=== PATIENT | female | born 1980 | race Native Hawaiian/Other Pacific Islander ===

== ENCOUNTER 2024-12-17 17:57 | Emergency (ER) | payer OTHER, SELFPAY ==
--- NOTE | ~2024-12-17 | CT_ITS ---
CLINICAL HISTORY: paranoia, altered CT head without contrast Comparison: None provided Findings: No intra-axial mass, midline shift, hydrocephalus, or acute hemorrhage. No significant atrophy-like change or white matter disease. The visualized paranasal sinuses and mastoid air cells are normal. The orbits are unremarkable. There is no acute fracture. IMPRESSION: 1. No acute intracranial findings. This document has been electronically signed by: Lindsay Garner MD on 12/17/2024 19:27:28
--- NOTE | 2024-12-17 18:02 | ED_ITS ---
HPI - General Adult General Chief complaint: General Medical Stated complaint: not feeling herself/paranoid/pcp sent her for eval Time Seen by Provider: 12/17/24 20:26 Source: patient, RN notes reviewed and old records reviewed Mode of arrival: ambulatory Limitations: no limitations History of Present Illness ED Provider: Louisa Morrow PA-C HPI narrative: Patient is accompanied by her significant other. Patient was referred to the emergency department to receive medical clearance before her psychiatrist Bee Said initiates medication. For the past month patient states she has had demand auditory hallucinations stating bad comments toward herself and sometimes other people. She denies having any SI HI. She feels paranoid sometimes like the world is out to get her. She denies having any new recent stressors. She does not have any visual hallucinations. She does not have plans to stay in the hospital or to have a crisis/ psychiatric evaluation here. She came here only for medical clearance and to be started on medication outpatient. She has not constitutional sxs: denies headaches, dizziness, sore throat, coughing, sob, abd pain, n/v/d. No body aches, joint pain or rashes. No sxs. No travel. Spouse who is with her has no add'l hx and patient feels safe and supported by him. Patient denies EtOH and illicit drug use. No known family hx of mental health disorders. Patient is reporting that she has not suffered from this before and denies any new life stressors. Onset (ago): month(s) (one) Related Data Allergies Allergy/AdvReac Type Severity Reaction Status Date / Time No Known Allergies Allergy Verified 12/17/24 18:09 Review of Systems 2 Review of Systems: Yes all other systems are reviewed and are negative [facility] Past Medical History Attestation statement: The following information was validated with the patient. Source: old records reviewed and nursing notes reviewed Social History Social History Alcohol intake: current Alcohol intake frequency: a few times a month Alcohol type: beer, wine and hard liquor Smoked in Last 30 Days: No Use of substances other than those prescribed or required for medical reasons: No Advance Directives: No Advance Directives Information Provided: No Do you have a plan to hurt others: No Plan Patient : No Physical Exam ED Vital Signs: Vital Signs - 24 hr 12/17/24 18:03 Temperature 98.3 F Pulse Rate 55 Respiratory Rate 18 Blood Pressure 147/86 H Pulse Oximetry 98 Oxygen Delivery Method Room Air BMI result Body Mass Index 36.6 Const Other: General: Appears in no acute distress, appears well-nourished body habitus is obese, appears stated age. No septic or ill-appearing. Vitals were reviewed normal, and PMH/Social and Surgical hx was reviewed, including allergies and current medications. - reviewed for prior visits here Head: Normocephalic, no abnormal lesions noted. Eyes: EOMI. ENMT: moist oral mucosa, no edematous nasal turbinates, erythema, or purulent d/c noted. No erythema, normal appearance, and intact tympanic membrane. Hearing intact. No mastoid tenderness b/l. Normal posterior pharynx and structures. Uvula is midline no trismus. Neck: trachea midline, no lymphadenopathy. No nuchal rigidity. Cardiovascular: Peripheral perfusion is normal; S1 and S2 are present, and no M/R/G is present. RRR Respiratory: no respiratory distress, lungs clear to auscultation b/l, respirations full and symmetric. No flail chest, chest wall tenderness, or crepitus was noted. Speaking in full smooth sentences. Abdomen: non-distended, nontender, protuberant Extremities: Warm and appear well perfused. Moving extremities without difficulty. Psych: Cooperative, calm. Neuro: Alert and orientated. No obvious focal deficits. Course Course Course Narrative: Rapid medical examination performed in triage by Cande Infante PA-C. Patient is a 44 year old assigned female at presenting to the emergency department with paranoia. Patient states that her psychiatrist recommended she come here for some testing. Patient states that she does not have any psychiatric history but they recommended she come here. Detailed physical exam and review of systems are deferred to the estate attorney. EKG, labs, imaging ordered. Patient placed back in the waiting room pending room availability and results. Medical Decision Making Medical Decision Making MDM Narrative: 44 year old female presenting to the emergency department for medical clearance for psychiatric management outpatient. Patient has no acute medical complaints. On arrival, patient is afebrile. Vitals are stable. Physical examination is as above and essentially unremarkable. Laboratory work-up is reassuring. At this time, the patient is medically cleared. She has declined ED psych consult. She feels safe to go home. Advised to return for any changes in mental status or crisis. She agreed with plan and was d/c to home stable with spouse. Differential Diagnosis Differential Diagnoses: The differential diagnosis associated with the presentation includes Mood disorder/schizoaffective disorder personality disorder Metabolic dysfunction, electrolyte imbalance, brain mass Admission/Observation Consideration of admission/observation: Escalation of care including admission/observation considered Lab Data MDM Lab Attestation statement: I reviewed the patient's lab results. 12/17/24 18:25 12/17/24 18:25 Labs: Lab Results 12/17/24 12/17/24 Range/Units 18:25 18:31 WBC 6.7 (4.8-10.8) X10*3/uL RBC 4.46 (4.20-5.50) X10*6/uL Hgb 13.8 (12.0-16.0) g/dl Hct 41.1 (37.0-47.0) % MCV 92.2 (80.0-98.0) fL MCH 30.9 (27.0-33.0) pg MCHC 33.6 (31.0-35.0) g/dl RDW 12.9 (11.0-16.0) % Plt Count 261 (160-400) X10*3/uL MPV 8.9 L (9.4-12.3) fL Immature Gran % (Auto) 0.0 (0.0-0.4) % Neut % (Auto) 62.3 (45-73) % Lymph % (Auto) 29.3 (20-40) % [place] % (Auto) 7.4 (2-11) % Eos % (Auto) 0.4 (0-4) % Baso % (Auto) 0.6 (0-2) % Lymph # (Auto) 2.0 (1.2-4.9) X10*3/uL [place] # (Auto) 0.5 (0.1-1.2) X10*3/uL Eos # (Auto) 0.0 (0.0-0.4) X10*3/uL Baso # (Auto) 0.0 (0.0-0.2) X10*3/uL Abs Immat Gran (auto) 0.00 (0.00-0.03) X10*3/uL Absolute Neuts (auto) 4.2 (2.0-8.3) x10*3/uL Absolute Nucleated RBC 0.000 (0.0-0.012) X10*3/uL Nucleated RBC % (auto) 0.0 (0.0-0.2) /100WBC Sodium 140 (135-145) mmol/L Potassium 4.4 (3.3-5.1) mmol/L Chloride 103 (96-108) mmol/L Carbon Dioxide 29 (22-29) mmol/L Anion Gap 12 (12-20) BUN 9 (9-16) mg/dL Creatinine 0.91 (0.5-1.4) mg/dL Estim Creat Clear Calc 106.5 Estimated GFR > 60 Random Glucose 100 (60-115) mg/dL Calcium 9.2 (8.4-10.2) mg/dL Total Bilirubin 0.5 (0.0-1.0) mg/dL AST 24 (5-31) U/L ALT 17 (0-31) U/L Alkaline Phosphatase 39 (39-117) U/L Total Protein 7.4 (6.5-8.0) g/dL Albumin 4.6 (3.5-5.0) g/dL Urine Color Yellow Urine Appearance Clear Urine pH 7.5 (5.0-9.0) Ur Specific [place] 1.015 (1.005-1.025) Urine Protein Negative (Neg-Trace) mg/dL Urine Glucose (UA) Negative (Negative) mg/dL Urine Ketones Negative (Negative) mg/dL Urine Blood Negative (Negative) Urine Nitrite Negative (Negative) Ur Leukocyte Esterase Negative (Negative) Salicylates < 5.0 L (15-30) mg/dL Urine Opiates Screen Not Detected (Not Detect) Ur Buprenorphine Scrn Not Detected (Not Detect) ng/mL Ur Oxycodone Screen Not Detected (Not Detect) ng/mL Urine Methadone Screen Not Detected (Not Detect) ng/mL Urine Fentanyl Screen Not Detected (Not Detect) Acetaminophen < 3 (<30) mcg/mL Ur Barbiturates Screen Not Detected (Not Detect) Ur Phencyclidine Scrn Not Detected (Not Detect) Ur Amphetamines Screen Not Detected (Not Detect) U Benzodiazepines Scrn Not Detected (Not Detect) Urine Cocaine Screen Not Detected (Not Detect) U Marijuana (THC) Screen Not Detected (Not Detect) Ethyl Alcohol < 10 mg/dL COVID-19 (ARIANA) Negative (Negative) COVID-19 Clin Com See Note Independent Interpretation I performed an independent interpretation of an: EKG and CT Scan Interpretation: No prolonged QTc. No intracranial findings. Radiology Impression Discussion of test interpretation with radiology: I have reviewed the radiologist's reading. Radiologist Impression: No mass affect. No ICH. Independent Historian Clinical information obtained from an independent historian. History obtained from or confirmed by: Spouse Social Determinants Patient?s care significantly limited by Social Determinants of Health including: Other Social Determinant of Health Discharge Plan Discharge Clinical Impression: Acute paranoia, Auditory hallucinations Patient Disposition: Home, Self-Care Instructions: Hallucinations (ED) Additional Instructions: Into the emergency department today to have medical clearance in regards to receiving potential medication for her mental health disorder that has yet to be fully diagnosed. There is no organic causes for her symptoms labs are normal negative head CT , no illicit drugs she has not endorsing any suicidal or homicidal ideations and declines psych consultation in the ED setting. You are established with a psychiatrist see handout for all your labs EKG: Test Reason : medical clearance Blood Pressure : */* mmHG Vent. Rate : 54 BPM Atrial Rate : 54 BPM P-R Int : 170 ms QRS Dur : 74 ms QT Int : 408 ms P-R-T Axes : -4 15 11 degrees QTcB Int : 386 ms Sinus bradycardia Otherwise normal ECG Head CT: IMPRESSION: 1. No acute intracranial findings Should you have any thoughts of harming herself or others please return immediately to emergency department or call the crisis line Referrals: Bee Akers NP [Nurse Practitioner, Physiatry] Referral Note: Patient has no organic cause of symptoms. She has been medically cleared. Interventions: ED Discharge Assessment Last Done: 12/17/24 20:51 Discharge Date/Time: 12/17/24 20:53 Print Language: Thai
[2024-12-17 18:03] VITALS: BP 147/86; PULSE 55; RESP 18; TEMP 36.8; O2SAT 98; BMI 36.6
[2024-12-17 18:34] LABS: MANUAL DIFF FLAG NO
[2024-12-17 18:37] LABS: Appearance Urine Clear; Glucose Urine UA Negative (Negative); PH 7.5 (5.0-9.0); Specific Gravity - Urine 1.015 (1.005-1.025)
[2024-12-17 18:37] LABS: Hematocrit 41.1 % (37.0-47.0); Hemoglobin 13.8 g/dl (12.0-16.0); Imm Gran Abs Auto 0.00 X10*3/uL (0.00-0.03); Imm Gran Pct Auto 0.0 % (0.0-0.4); Lymphocytes Absolute Auto 2.0 X10*3/uL (1.2-4.9); Mean Corpuscular HGB Conc 33.6 g/dl (31.0-35.0); Mean Corpuscular Hemoglobin 30.9 pg (27.0-33.0); Mean Corpuscular Volume 92.2 fL (80.0-98.0); NRBC Abs Auto 0.000 X10*3/uL (0.0-0.012); NRBC Pct Auto 0.0 /100WBC (0.0-0.2); Platelet Count 261 X10*3/uL (160-400); Red Blood Count 4.46 X10*6/uL (4.20-5.50); White Blood Count 6.7 X10*3/uL (4.8-10.8)
[2024-12-17 18:49] LABS: COVID-19 Test Negative (Negative); IDNOW Serial# 58CA691E
[2024-12-17 18:49] LABS: Cannabinoid Screen Urine Not Detected (Not Detect)
[2024-12-17 18:54] LABS: Alanine Aminotransferase 17 U/L (0-31); Albumin Level 4.6 g/dL (3.5-5.0); Alkaline Phosphatase 39 U/L (39-117); Anion Gap 12 (12-20); Aspartate Amino Transferase 24 U/L (5-31); Blood Urea Nitrogen 9 mg/dL (9-16); Calcium 9.2 mg/dL (8.4-10.2); Carbon Dioxide 29 mmol/L (22-29); Chloride 103 mmol/L (96-108); Creatinine Clr Calc Pharmacy 106.5; Estimated Glomerular Filt Rate > 60; Potassium 4.4 mmol/L (3.3-5.1); Sodium 140 mmol/L (135-145); Total Protein 7.4 g/dL (6.5-8.0)
[2024-12-17 18:55] LABS: Acetaminophen LAB < 3 mcg/mL (<30); Salicylate < 5.0 mg/dL (15-30)
[2024-12-17 20:43] VITALS: BP 117/60; PULSE 55; TEMP 36.7; O2SAT 97
[2024-12-17 20:51] VITALS: BP 117/60; PULSE 55; RESP 18; TEMP 36.7; O2SAT 97
== END 2024-12-17 20:53 | disposition home or self-care (01) ==
PROVIDERS: Physician Assistant Medical; Emergency Provider Emergency Medicine; PCP Nurse Practitioner Family
DX: F23 Brief psychotic disorder (principal); R44.0 Auditory hallucinations; E66.9 Obesity, unspecified; Z68.36 Body mass index [BMI] 36.0-36.9, adult; R00.1 Bradycardia, unspecified
CPT/HCPCS: 36415; 70450; 80053; 80143; 80179; 80307; 81003; 85025; 87635; 93005; 99284

== ENCOUNTER → 2024-12-17 18:04 | Outpatient (BNV) | payer OTHER, SELFPAY | PROVIDERS: Emergency Provider Emergency Medicine; PCP Nurse Practitioner Family; Visit Provider Internal Medicine Cardiovascular Disease | DX: R00.1 Bradycardia, unspecified (principal) | CPT/HCPCS: 93010 ==

== ENCOUNTER → 2024-12-17 18:04 | Outpatient (BNV) | payer OTHER, SELFPAY | PROVIDERS: PCP Nurse Practitioner Family; Visit Provider Student in an Organized Health Care Education/Training Program | DX: R41.82 Altered mental status, unspecified (principal) | CPT/HCPCS: 70450 ==

== ENCOUNTER 2025-02-10 12:15 | Outpatient (RCR) | payer OTHER, SELFPAY ==
[2025-02-05 09:33] VITALS: BMI 36.7
[2025-02-05 09:34] VITALS: BP 104/62; PULSE 76; TEMP 36
--- NOTE | 2025-02-05 10:13 | PC.ADMIT ---
Patient is a 44 year old partnered female who self referred to [facility] secondary to experiencing psychosis feeling that she is being watched by others and told to do things a certain way or something bad will happen. 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 Patient reports no history of psychosis. Patient had a medical workup at [facility] to r/o medical issues that could be causing symptoms. Patient reports work up was negative. I asked if she felt the medication was helping. Patient stated, I still feel like everything I do I'm being watched but feels less invasive. The medication is helping my anxiety but I don't like the way my brain feels feels like I am not myself. Patient is alert and oriented x4. She is calm and cooperative. Her thoughts were clear and logical. Did not appear to be responding to internal stimuli and no paranoia noted during the nursing assessment. Patient denied SI, no HI. She was given a copy of her safety plan if needed. Medications updated with patient and patient's pharmacy. She reports taking medications as prescribed. Patient denied any substance issues.
--- NOTE | 2025-02-06 15:14 | HO.PHP ---
Client's case was opened and reviewed in teams.
--- NOTE | 2025-02-07 21:30 | P.HPPSP_ITS ---
HPI Date of Service: 02/06/25 Chief Complaint: depression,anxiety,AH Sources of Information: patient interviewed, chart reviewed and crisis/core team assessment reviewed HPI Narrative: Patient is an employed, 44 yo female who was referred to [facility] upon the en couragement of her family. Per family report, patient has been experiencing CT- AH that say demeaning things toward her and others. Paranoid beliefs she is being monitored by others, and that she is being followed everywhere she goes. Patient's mother is noted to have suicided when patient was 28 yo, reporteldy this was very traumatizing to her. She is also noted to struggle with low self esteem. Aside from this history, patient has little to no prior psychiatric issues. Her family is very concerned for her. Patient initially presented with these complaints in the ED on 12/17 and underwent a Head CT with no abnormal findings. 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 I feel I have.. I'm being watched in.. everything . Patient relays sense of feeling anxious and on edge all the time, mostly due to vague paranoia about being followed and monitored. Experiencing paranoid ideation, ideas of reference, seeeing people parked in a parking lot will often make her feel that they are stationed there monitoring her, anywhere. She is also obsessively monitoring her internal thought processses. I keep thinking through my thoughts.. feel I keep making wrong decisions, then.. spiraling . She reports that she has been experiencing depression for some time, but says that it is moreso in the past 3 months she is hearing voices and starting to notice ways that people communicate with each other without saying a word. I see them do it right in front of me . She wonders why she had never noticed this before. She says she has a lot of theories but also has trouble articulating these but says feels like a spider web, I'm trying to figure it out but there's just endless connections, and my mind wont stop trying to figure it out and I almost think I do but then I cant . Sometimes she hears directions going off sometimes she hears things about herself, negative things, sometimes she hears them about others. She is not convinced she is hearing voices , she says she is uncomfortable with that questions. Her impression of these occurrances is that I feel like the community wants me to leave . She reports struggling with human connection laterly, even with her own family that she trusts, noting that it is hard to be present because she is constantly distracted by being constantly monitored by other in her enviobrment. She was started on paliperidone but thus far just makes me flat. I cant feel anything. No jose. It's hard to think of other people on this medication (as in it's difficult to feel her feeling or empathy). She coudl not tolerate ABilify. She was on RIsperdal for 3 days then switched to paliperiodone. She repots her mood as depressed with anhedonia, feeling more isolative and disinterested in things she once enjoyed. Past Psychiatric History: No prior IPLOC, PHP, respite, detox/rehab admissions SA: denies SIB: denies Aggression or antisocial behaviors: denies Denies legal history Psychiatrist: Bee Akers [employer] Therapist: Mary Toussaint LCSW PCP: Migdalia Bell CNP Previous trials: Abilify, CURRENT MEDICATIONS: paliperidone 1.5 mg qd [facility] Medical History (Updated 02/12/25 @ 17:04 by Anuradha Shea MD) No known health problems Narrative: says aside from obesity she is healthy No chronic health conditions Surgeries: denies Seizures: denies Concussions/TBI: denies G2M1P1 (loss one ) she has a 4 yo son LMP: 2 weeks ago, regular q 28 days, Ht: 5'10 Wt: 255 lbs ALL: Surgical History (Updated 02/05/25 @ 09:33 by Fransisca Cutler RN) H/O carpal tunnel repair Social History: , children Substance History: denies Diagnostics Vital Signs (24Hr): BMI result Body Mass Index 36.7 Meds/Allergies Meds Home Medications ?Medication ?Instructions ?Recorded ?Confirmed ?Type estradiol 0.025 mg/24 hr weekly 1 patch transdermal QW AMBLER 02/05/25 02/05/25 History transdermal patch progesterone micronized 100 mg 100 mg PO BEDTIME 02/0502/05/25 History capsule Allergies Allergies Allergy/AdvReac Type Severity Reaction Status Date / Time No Known Allergies Allergy Verified 12/17/24 18:09 Mental Status Exam Mental Status Exam Patient Appearance: Appropriate Patient Orientation: Person, Place, Time and Situation Level of Consciousness: Awake and Alert Patient Behavior: Guarded, Resistive to Care and Isolative Mood Description: Suspicious, Depressed and Anxious Affect Description: Calm, Suspicious, Withdrawn, Depressed, Flat and Apprehensive Patient Cognition Impaired: No Ability to Follow Directions: Good Speech Pattern: Clear, Monotone, Soft-Spoken and Long Pauses (few times appeared internally preoccupied) Hallucinations: Auditory (appears internally preoccupied) Delusions: Paranoid Ideation Perceptual Disturbances: Hallucinations (unclear (pt denies)) Thought Process: Illogical Thought Content: positive for Preoccupation Judgement: Fair Judgement and Insight: insight impaired Assessment & Plan Assessment & Plan (1) Unspecified psychosis: Status: Acute Code(s): F29 - Unspecified psychosis not due to a substance or known physiological condi tion (2) Mood disorder: Status: Acute Code(s): F39 - Unspecified mood [affective] disorder Plan 44 yo with emerging psychosis, no clear history of MH issues aside from chronic low grade anxiety, low self esteem, but 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 There is +FH of suicide in mother when patient was 28 yo of which patient endorses feeling traumatized from. No clear medical/physcial correlation (aside from patient likely being perimenopausal since age 44 yo), patient appears to be experiencing first psychotic episode of unclear cause. No known substance use hx, patient denies any alcohol, illicit drug or other susbtance (otc, recreational) that she is aware of. Was considering switching to Latuda, which may be less flattening, however given that paliperidone is interfering with sleep we can see if things improveme with moving paliperidone to AM, and if better tolerated, we may add Seroquel to PM to help wtih sleep. If paliperidone is not tolerated, will transition over to Latuda and consider risperidone prn. She is very ambivalent about staying at the program, but agree to return tomorrow and try. When asked about whether command type, she says it's not like it is demanding her to do something, it's more like it tells me what is going to happen (like makes predictions). She admits she has this underlying fear of doing things or not doing things. I dont know I just get to a point I'm overthinking everything . She is unable to clarify if she is following through on the suggestions it makes bt she demures. I just believe I'm a horrible person . She denies any issues and when asked if the voice tells her not to disclose things, she stares at me silently and slowly nods her head. She denies any thoughts of harming self or others. She denies the voices demands her to harm others. She denies any SI, HI, VH, TH. She is not sure if she is hearing auditory hallucinations because do kind of think there is someone doing this . Admit to [facility] VS reviewed: afebrile, BP 104/62;?76 bpm try moving paliperidone to daytime start quetiapine 25 -50 mg qhs sleep will also offer clonazepam 0.25-0.5 mg BID prn anxiety continue regular medications for now Routine lab work as indicated EKG, routine for baseline QTc for medication considerations as indicated UDS as indicated [facility] reviewed Continue to monitor as per protocol Patient educated on: diagnosis and medication risk/benefits Informed Consent: understands Reason for continued partial hosp. stay Substantial Risk for: inability to function, rapid decompensation and med/psych decompensation Certification I certify that partial hospital treatment is medically necessary due to the symptoms and problems resulting from the patient's mental illness and the failure to treat the patient at the partial hospital level of care would likely result in the patient requiring inpatient psychiatric care which could not be prevented at a less intensive level of care. Time Spent With Patient Time: Total time managing care of this patient today __60__ minutes.
--- NOTE | 2025-02-10 13:42 | PC.NURSE ---
Jose Guadalupe reports she stopped the Palpiperidone over the weekend as she did not like the way it made her feel. C/o feeling flat, feels she can not think clearly and not being able to connect with her son. Stated she felt slowed down on the medication. Does not look like she started the new medication as she stated she is only taking anxiety medication and is looking to start a new medication. She is feeling the program is not for her and feels she is taking on everyone else's issues. She is willing to come in tomorrow and meet with Dr. Shea however looks like she wants to discharge. Dr. Shea is aware.
--- NOTE | 2025-02-11 09:04 | HO.PHP ---
PHP admin, Monique, informed the team that Annika will not be in attendance to program today due to her not feeling well.
--- NOTE | 2025-02-12 15:05 | HO.PHP ---
PHP admin, Monique, informed the team that Annika called stating that she would like to discharge from the program due to not finding the group setting to be helpful for her at this time. Monique, informed her that she will have her clinician reach out. [facility] staff member reached out to Colbyleonorever, who continued to voice she would like to discharge because she is finding that the group setting is making her worse and is more triggering. [facility] staff member informed Annika that we would like for her to come in tomorrow at [address] meet [address] Shea to go over discharge paperwork. Annika was receptive.
== END 2025-02-10 23:59 | disposition home or self-care (01) ==
LOC: HO.PHPA 12:15
PROVIDERS: Visit Provider Psychiatry & Neurology Psychiatry
DX: F39 Unspecified mood [affective] disorder (principal); F29 Unspecified psychosis not due to a substance or known physiological condition
CPT/HCPCS: 90791; 90853